=== PATIENT | male | born 1970 | race Caucasian/White ===

== ENCOUNTER 2016-07-20 17:13 | Emergency (ER) | payer BC, OTHER ==
[~2016-07-20] VITALS: Ht 175.3 cm; Wt 71.8 kg
[2016-07-20 17:16] VITALS: BP 150/85; TEMP 98.3
[2016-07-20 18:40] LABS: BASO % 0.5 % (0.0-2.0); EOS # 0.1 (0.0-0.7); EOS % 1.9 % (0-4.0); GRAN # 4.2 (1.4-6.5); GRAN % 66.6 % (42.2-75.2); HEMATOCRIT 42.6 % (42.0-52.0); HEMOGLOBIN 14.8 g/dl (13.5-18.0); LYMPH # 1.5 (1.2-3.4); LYMPH % 24.5 % (20.0-51.0); MEAN CELL VOLUME 89 fl (80.0-100.0); MEAN CORPUSCULAR HEMOGLOBIN 31 pg (27.0-31.0); MEAN CORPUSCULAR HGB CONC 35 g/dl (33.0-37.0); MEAN PLATELET VOLUME 10.1 fl (7.4-10.4); MONO # 0.4 (0.1-0.6); MONO % 6.2 % (1.7-9.3); PLATELET COUNT 214 K/mm3 (130-400); RED BLOOD COUNT 4.77 M/mm3 (4.20-5.60); WHITE BLOOD COUNT 6.3 K/mm3 (4.8-10.8)
[2016-07-20 18:44] LABS: INR 1.1 (0.8-3.0); PROTHROMBIN TIME 11.9 SECONDS (9.7-12.8)
[2016-07-20 18:46] LABS: PARTIAL THROMBOPLASTIN TIME 37.7 SECONDS (26.0-37.0)
[2016-07-20 18:52] LABS: ADJUSTED CALCIUM 9.3 mg/dL (8.4-10.2); ALANINE AMINOTRANSFERASE 42 U/L (21-72); ALBUMIN 4.5 gm/dL (3.5-5.0); ALKALINE PHOSPHATASE 72 U/L (50-136); ANION GAP 13 mmol/L (7-16); BLOOD UREA NITROGEN 21 mg/dL (9-20); CALCIUM 9.7 mg/dL (8.4-10.2); CARBON DIOXIDE 24 mmol/L (22-30); CHLORIDE 103 mmol/L (98-107); GLUCOSE 86 mg/dL (74-106); POTASSIUM 3.8 mmol/L (3.4-5.0); SODIUM 140 mmol/L (137-145); TOTAL PROTEIN 7.6 gm/dL (6.4-8.2)
[2016-07-20 19:10] LABS: TROPONIN-I < 0.012 ng/mL (0.000-0.034)
[2016-07-20 20:52] VITALS: PULSE 52
== END 2016-07-20 20:54 | disposition home or self-care (01) ==
LOC: COL.ER 17:13
PROVIDERS: Emergency Medicine
DX: R13.10 Dysphagia, unspecified (principal); F17.210 Nicotine dependence, cigarettes, uncomplicated
CPT/HCPCS: C9113; J7120

== ENCOUNTER 2016-07-21 12:26 | Day surgery (SDC) | payer BC, OTHER ==
[~2016-07-21] VITALS: Ht 175.3 cm; Wt 87.4 kg
[2016-07-21 13:13] VITALS: BP 136/87; PULSE 58; TEMP 98.4
[2016-07-21 15:15] VITALS: BP 106/73; PULSE 48; TEMP 97.5
[2016-07-21 15:30] VITALS: BP 108/71; PULSE 52
[2016-07-21 15:45] VITALS: BP 102/65; PULSE 53
== END 2016-07-21 15:59 | disposition home or self-care (01) ==
LOC: SDCO 12:26
DX: K22.2 Esophageal obstruction (principal); K21.0 Gastro-esophageal reflux disease with esophagitis
CPT/HCPCS: C1726; J2250; J3010; J7030

== ENCOUNTER 2019-08-31 09:17 | Emergency (ER) | payer SELFPAY ==
[~2019-08-31] VITALS: Ht 177.8 cm; Wt 102.3 kg
[2019-08-31 09:23] VITALS: TEMP 98.1
[2019-08-31 09:59] LABS: BASO % 0.3 % (0.0-2.0); EOS # 0.1 (0.0-0.7); EOS % 2.1 % (0-4.0); GRAN # 3.8 (1.4-6.5); GRAN % 65.3 % (42.2-75.2); HEMATOCRIT 43.6 % (42.0-52.0); HEMOGLOBIN 14.8 g/dl (13.5-18.0); LYMPH # 1.5 (1.2-3.4); LYMPH % 25.7 % (20.0-51.0); MEAN CELL VOLUME 90 fl (80.0-100.0); MEAN CORPUSCULAR HEMOGLOBIN 30 pg (27.0-31.0); MEAN CORPUSCULAR HGB CONC 34 g/dl (33.0-37.0); MEAN PLATELET VOLUME 9.8 fl (7.4-10.4); MONO # 0.4 (0.1-0.6); MONO % 6.4 % (1.7-9.3); PLATELET COUNT 254 K/mm3 (130-400); RED BLOOD COUNT 4.87 M/mm3 (4.20-5.60); REDCELL DISTRIBUTION WIDTH-CV 12.3 % (11.5-14.5)
[2019-08-31 10:07] LABS: ALANINE AMINOTRANSFERASE 81 U/L (4-49); ALBUMIN 4.5 gm/dL (3.5-5.0); ALKALINE PHOSPHATASE 93 U/L (50-136); ANION GAP 8 mmol/L (7-16); AST,SGOT 47 U/L (15-37); BILIRUBIN,TOTAL 0.6 mg/dL (0.0-1.0); BLOOD UREA NITROGEN 21 mg/dL (9-20); CALCIUM 9.6 mg/dL (8.4-10.2); CARBON DIOXIDE 27 mmol/L (22-30); CHLORIDE 105 mmol/L (98-107); CREATININE, serum 0.95 (0.66-1.25); GLUCOSE 162 mg/dL (74-106); POTASSIUM 3.8 mmol/L (3.4-5.0); SODIUM 139 mmol/L (137-145); TOTAL PROTEIN 7.9 gm/dL (6.4-8.2)
[2019-08-31 10:20] LABS: TROPONIN-I < 0.012 ng/mL (0.000-0.035)
[2019-08-31] MEDS ORDERED: CARAFATE 1GM1 G PO (10:31)
[2019-08-31] MEDS ORDERED: PRIL40 PO (10:31)
[2019-08-31 10:50] VITALS: BP 122/88; PULSE 68
== END 2019-08-31 10:53 | disposition home or self-care (01) ==
LOC: COL.ER 09:17
PROVIDERS: Physician Assistant
DX: K21.9 Gastro-esophageal reflux disease without esophagitis (principal); Z87.891 Personal history of nicotine dependence

== ENCOUNTER 2020-02-16 04:05 | Emergency (ER) | payer SELFPAY ==
[~2020-02-16] VITALS: Ht 177.8 cm; Wt 102.3 kg
[~2020-02-16 04:05] MED LIST: CARAFATE 1GM1 G PO; PRIL40 PO
[2020-02-16 04:09] VITALS: TEMP 98.2
[2020-02-16 04:50] LABS: COLLECTION METHOD CLEAN CATCH
[2020-02-16 04:55] LABS: BASO % 0.3 % (0.0-2.0); EOS # 0.2 (0.0-0.7); EOS % 1.4 % (0-4.0); GRAN # 9.7 (1.4-6.5); HEMATOCRIT 42.3 % (42.0-52.0); HEMOGLOBIN 14.3 g/dl (13.5-18.0); LYMPH # 1.2 (1.2-3.4); LYMPH % 9.9 % (20.0-51.0); MEAN CELL VOLUME 89 fl (80.0-100.0); MEAN CORPUSCULAR HEMOGLOBIN 30 pg (27.0-31.0); MEAN CORPUSCULAR HGB CONC 34 g/dl (33.0-37.0); MEAN PLATELET VOLUME 10.2 fl (7.4-10.4); MONO # 0.8 (0.1-0.6); MONO % 6.9 % (1.7-9.3); PLATELET COUNT 269 K/mm3 (130-400); RED BLOOD COUNT 4.76 M/mm3 (4.20-5.60); REDCELL DISTRIBUTION WIDTH-CV 12.2 % (11.5-14.5)
[2020-02-16 04:58] LABS: PH 8 (5-8); SQUAMOUS EPITHELIAL 0-2 /hpf; URINE APPEARANCE Clear; URINE BACTERIA None Seen /hpf; URINE BILIRUBIN Negative (NEGATIVE); URINE BLOOD Negative (NEGATIVE); URINE COLOR Yellow; URINE GLUCOSE Negative (NEGATIVE); URINE KETONE Negative (NEGATIVE); URINE LEUKOCYTE ESTERASE Negative (NEGATIVE); URINE NITRATE Negative (NEGATIVE); URINE PROTEIN(semi-quant) 1+ (NEGATIVE); URINE RBC 0-2 /hpf; URINE UROBILINOGEN Negative (NEGATIVE)
[2020-02-16 05:05] LABS: ALBUMIN 4.6 gm/dL (3.5-5.0); BILIRUBIN,TOTAL 0.6 mg/dL (0.0-1.0); CALCIUM 9.4 mg/dL (8.4-10.2); CREATININE, serum 0.99 (0.66-1.25); POTASSIUM 3.8 mmol/L (3.4-5.0)
[2020-02-16] MEDS ORDERED: BENTYL 20MG20 MG/TAB PO (05:59)
[2020-02-16] MEDS ORDERED: ZOFRAN ODT4 MG PO (05:59)
[2020-02-16] MEDS ORDERED: AMOXICILLIN 8751 TAB PO (05:59)
[2020-02-16 06:44] VITALS: BP 142/90; PULSE 80
== END 2020-02-16 06:47 | disposition home or self-care (01) ==
LOC: COL.ER 04:05
PROVIDERS: Emergency Medicine
DX: R10.30 Lower abdominal pain, unspecified (principal); R19.7 Diarrhea, unspecified; K21.9 Gastro-esophageal reflux disease without esophagitis; R13.10 Dysphagia, unspecified
CPT/HCPCS: J2543; Q9967

== ENCOUNTER 2021-01-05 12:49 | Emergency (ER) | payer BC ==
[~2021-01-05] VITALS: Ht 180.3 cm; Wt 93.2 kg
[~2021-01-05 12:49] MED LIST changes: +AMOXICILLIN 8751 TAB PO; +BENTYL 20MG20 MG/TAB PO; +ZOFRAN ODT4 MG PO
--- NOTE | 2021-01-05 18:33 | NUR ---
Verbal order was received from Dr. Bueno to continue the patient's home medications upon discharge, and to discharge patient to home.
[2021-01-05 18:40] VITALS: BP 152/84; PULSE 60; TEMP 97.2
--- NOTE | 2021-01-05 18:40 | NUR ---
Patient arrives to [facility] via cart, accompanied by Jayce HERNANDEZ. He is sitting up in bed, alert and oriented. He states that his throat has mild pain, but is tolerable. Monitoring is applied - VSS and WNL on room air. He is offered and receives water to drink. PIV to TKO. His ride, Juana, is called and is able to pick him up from the hospital after recovery; she will be here at 1920.
[2021-01-05 18:55] VITALS: BP 128/83; PULSE 57
--- NOTE | 2021-01-05 18:55 | NUR ---
VSS on room air. Patient tolerating water fine. Offered and receives jello to eat.
[2021-01-05 19:10] VITALS: BP 124/84; PULSE 58
--- NOTE | 2021-01-05 19:10 | NUR ---
Patient ambulates to the restroom with steady gait, voids, and returns to room. PIV is removed with catheter intact and hemostasis achieved. He has met discharge criteria. Discharge instructions are discussed. He denies any questions and verbalizes understanding. He is changing to his clothing independently.
--- NOTE | 2021-01-05 19:22 | NUR ---
Patient is escorted to the exit via wheelchair by staff. He is discharged to the care of his girlfriend and her daughters, who drive him home in a private vehicle at 1920.
== END 2021-01-05 17:00 | disposition other institution (70) ==
LOC: COL.ER 12:49
DX: S10.15XA Superficial foreign body of throat, initial encounter (principal); W45.8XXA Other foreign body or object entering through skin, initial encounter
CPT/HCPCS: C1726; J1610; J3360

== ENCOUNTER 2023-08-07 23:32 | Emergency (ER) | payer OTHER ==
[~2023-08-07] VITALS: Ht 180.3 cm; Wt 113.6 kg
[~2023-08-07 23:32] MED LIST changes: +ADVIL200 MG PO; +FLEXERIL 1010 MG/TAB PO
[2023-08-07 23:36] VITALS: TEMP 98.3
[2023-08-08] MEDS ORDERED: NS 1,000 ML IV ONE (01:00)
[2023-08-08] MEDS ORDERED: Ondansetron 4 MG/2 ML VIAL IV ONE (01:00)
[2023-08-08] MEDS ORDERED: Morphine 4 MG/ML VIAL IV PRN (01:00)
[2023-08-08] MEDS ORDERED: Mag/Al Hydrox/Simeth Susp 30 ML CUP PO ONE (01:00)
[2023-08-08] MEDS ORDERED: Pantoprazole 40 MG in NS 10 ML IV ONE (01:15)
[2023-08-08 01:50] LABS: BASO % 0.5 % (0.0-2.0); EOS # 0.2 K/mm3 (0.0-0.7); EOS % 2.7 % (0.0-4.0); GRAN # 3.9 K/mm3 (1.4-6.5); GRAN % 63.2 % (42.2-75.2); HEMATOCRIT 39.7 % (42.0-52.0); HEMOGLOBIN 13.5 g/dl (13.5-18.0); LYMPH # 1.5 K/mm3 (1.2-3.4); LYMPH % 23.6 % (20.0-51.0); MEAN CELL VOLUME 87 fl (80.0-100.0); MEAN CORPUSCULAR HEMOGLOBIN 30 pg (27-31); MEAN CORPUSCULAR HGB CONC 34 g/dl (33.0-37.0); MEAN PLATELET VOLUME 9.8 fl (7.4-10.4); MONO # 0.6 K/mm3 (0.1-0.6); MONO % 9.8 % (1.7-9.3); PLATELET COUNT 237 K/mm3 (130-400); RED BLOOD COUNT 4.57 M/mm3 (4.20-5.60); REDCELL DISTRIBUTION WIDTH-CV 13.6 % (11.5-14.5)
[2023-08-08 02:06] LABS: ALANINE AMINOTRANSFERASE 30 U/L (0-55); ALBUMIN 3.6 g/dL (3.5-5.0); ALKALINE PHOSPHATASE 75 U/L (40-150); ANION GAP 11 mmol/L (7-16); AST,SGOT 24 U/L (5-34); BILIRUBIN,TOTAL 0.3 mg/dL (0.2-1.2); BLOOD UREA NITROGEN 14 mg/dL (8-26); CALCIUM 9.5 mg/dL (8.4-10.2); CHLORIDE 109 mEq/L (98-107); CREATININE, serum 0.91 mg/dL (0.72-1.25); GLUCOSE 124 mg/dL (70-99); LIPASE 54 U/L (8-78); POTASSIUM 3.8 mEq/L (3.5-4.5); SODIUM 141 mEq/L (136-145)
[2023-08-08 02:40] LABS: TROPONIN-I < 0.010 ng/mL (0.00-0.033)
[2023-08-08 03:10] VITALS: BP 125/82; PULSE 53
== END 2023-08-08 03:10 | disposition home or self-care (01) ==
LOC: COL.ER 23:32
PROVIDERS: Personal Emergency Response Attendant
DX: K21.00 Gastro-esophageal reflux disease with esophagitis, without bleeding (principal); R07.9 Chest pain, unspecified
CPT/HCPCS: C9113; J2270; J2405; J7030

== ENCOUNTER 2023-11-05 01:44 | Emergency (ER) | payer OTHER ==
[~2023-11-05] VITALS: Ht 180.3 cm; Wt 113.6 kg
[2023-11-05 01:51] VITALS: TEMP 98.2
[2023-11-05] MEDS ORDERED: [UNRECOGNIZED DRUG - OTHER] IV SCH (02:15)
[2023-11-05] MEDS ORDERED: NS IV SCH (02:15)
[2023-11-05] MEDS ORDERED: PANTOPRAZOLE IV SCH (02:15)
[2023-11-05] MEDS ORDERED: Mag/Al Hydrox/Simeth Susp 30 ML CUP PO ONE (02:15)
[2023-11-05 02:18] LABS: BASO % 0.6 % (0.0-2.0); EOS # 0.2 K/mm3 (0.0-0.7); EOS % 2.9 % (0.0-4.0); GRAN # 3.7 K/mm3 (1.4-6.5); GRAN % 54.1 % (42.2-75.2); HEMATOCRIT 44.4 % (42.0-52.0); HEMOGLOBIN 14.9 g/dl (13.5-18.0); LYMPH # 2.2 K/mm3 (1.2-3.4); LYMPH % 32.1 % (20.0-51.0); MEAN CELL VOLUME 88 fl (80.0-100.0); MEAN CORPUSCULAR HEMOGLOBIN 29 pg (27-31); MEAN CORPUSCULAR HGB CONC 34 g/dl (33.0-37.0); MEAN PLATELET VOLUME 9.6 fl (7.4-10.4); MONO # 0.7 K/mm3 (0.1-0.6); PLATELET COUNT 239 K/mm3 (130-400); RED BLOOD COUNT 5.07 M/mm3 (4.20-5.60); REDCELL DISTRIBUTION WIDTH-CV 13.1 % (11.5-14.5)
[2023-11-05 02:33] LABS: ALANINE AMINOTRANSFERASE 35 U/L (0-55); ALBUMIN 3.9 g/dL (3.5-5.0); ALKALINE PHOSPHATASE 80 U/L (40-150); ANION GAP 11 mmol/L (7-16); AST,SGOT 21 U/L (5-34); BILIRUBIN,TOTAL 0.3 mg/dL (0.2-1.2); BLOOD UREA NITROGEN 20 mg/dL (8-26); CALCIUM 9.4 mg/dL (8.4-10.2); CHLORIDE 106 mEq/L (98-107); CREATININE, serum 0.99 mg/dL (0.72-1.25); GLUCOSE 110 mg/dL (70-99); LIPASE 58 U/L (8-78); POTASSIUM 3.9 mEq/L (3.5-4.5); SODIUM 140 mEq/L (136-145); TOTAL PROTEIN 7.5 g/dl (6.2-8.1)
[2023-11-05 02:40] LABS: TROPONIN-I < 0.010 ng/mL (0.00-0.033)
[2023-11-05] MEDS ORDERED: Pantoprazole 40 MG in NS 10 ML IV SCH (02:45)
[2023-11-05] MEDS ORDERED: Pantoprazole 40 MG in NS 10 ML IV ONE (02:45)
[2023-11-05 05:00] VITALS: BP 132/83; PULSE 60
[2023-11-05] MEDS ORDERED: PEPCID 20MG TAB20 MG PO (05:20)
[2023-11-05] MEDS ORDERED: PROTONIX 40MG T40 MG PO (05:20)
== END 2023-11-05 05:20 | disposition home or self-care (01) ==
LOC: COL.ER 01:44
PROVIDERS: Emergency Medicine
DX: K21.9 Gastro-esophageal reflux disease without esophagitis (principal)
CPT/HCPCS: J2470